=== PATIENT | male | born 1980 | race Caucasian/White ===

== ENCOUNTER 2017-03-12 13:41 | Emergency (ER) | payer OTHER ==
[~2017-03-12 13:41] MED LIST: DILAUDID2 MG PO; ESCITALOPRAM OX20 MG PO; METHADONE PO; MINIPRESS1 MG PO; NEURONTIN PO; PEPCID AC20 M2 PO; REXULTI2 MG PO
[2017-03-12 13:59] LABS: URINE SOURCE CLEAN CATCH
[2017-03-12 14:06] LABS: URINE APPEARANCE CLEAR; URINE BILIRUBIN NEG (NEG); URINE BLOOD NEG (NEG); URINE COLOR DK YELLOW; URINE GLUCOSE NEG (NEG); URINE KETONE NEG (NEG); URINE LEUKOCYTE ESTERASE NEG (NEG); URINE NITRATE NEG (NEG); URINE PROTEIN TRACE (NEG); URINE SPECIFIC GRAVITY 1.033 (1.003-1.035)
[2017-03-12 14:13] LABS: CULTURE INDICATED? NO
== END 2017-03-12 16:35 | disposition home or self-care (01) ==
LOC: CED 13:41
PROVIDERS: Emergency Medicine
DX: R31.9 Hematuria, unspecified (principal); N50.811 Right testicular pain; G89.29 Other chronic pain; Z98.890 Other specified postprocedural states
CPT/HCPCS: 81003; 99283